=== PATIENT | female | born 1945 | race Caucasian/White ===

== ENCOUNTER 2023-09-19 09:30 | Emergency (ER) | payer OTHER ==
--- NOTE | 2023-09-19 10:11 | RAD REPORT ---
EXAM DESCRIPTION: CT - Head Brain Wo Cont - 09/19/2023 10:02 am CLINICAL HISTORY: Dizziness;Syncope COMPARISON: No comparisons TECHNIQUE: All CT scans are performed using dose optimization technique as appropriate and may inclu de automated exposure control or mA/KV adjustment according to patient size. FINDINGS: No intracranial hemorrhage, hydrocephalus or extra-axial fluid collection.No areas of brai n edema or evidence of midline shift. Mild chronic small vessel ischemic changes. The paranasal sinuses and mastoids are clear. The calvarium is intact. IMPRESSION: No acute intracranial abnormality.
[2023-09-19 10:22] LABS: Absolute Lymphocytes (CBC) 0.7 K/uL (0.7-4.9); Absolute Monocytes 0.5 K/uL (0.1-1.3); Absolute Neutrophil 7.1 K/uL (1.8-8.0); Basophils % 0.5 % (0-1.3); Eosinophils % 0.3 % (0-4.4); Hematocrit 37.4 % (36.0-45.0); Hemoglobin 12.6 g/dL (12.0-15.0); Lymphocytes % 7.8 % (15.3-44.8); MCH 31.7 pg (27.0-35.0); MCHC 33.8 g/dL (32.0-36.0); MCV 93.7 fL (80-100); MPV 8.8 fL (7.6-11.3); Monocytes % 6.1 % (3.3-12.3); Neutrophils % 85.3 % (41.7-73.7); Nucleated Red Blood Cells % 0.1 % (0-0); Platelets 162 thou/uL (152-406); RBC Red Blood Cell Count 3.99 M/uL (3.86-4.86)
[2023-09-19 10:31] LABS: PT Prothrombin Time 11.3 SECONDS (9.5-12.5); PTT, Activated Partial Thromb 28.6 SECONDS (24.3-36.9); Protime INR 1.03
--- NOTE | 2023-09-19 10:34 | RAD REPORT ---
EXAM DESCRIPTION: RAD - Chest Single View - 09/19/2023 10:07 am CLINICAL HISTORY: CHEST PAIN COMPARISON: CHEST PA AND LAT 2 VIEW dated 05/29/2012; CHEST PA AND LAT 2 VIEW dated 09/24/2009; CHEST PA AND LAT 2 VIEW dated 06/30/2009; CHEST PA AND LAT 2 VIEW dated 07/03/2000 FINDINGS: Lines: None. Lungs: No evidence of edema or pneumonia. Pleural: No significant pleural effusions or pneumothorax. Cardiac: The heart size is within normal limits. Mediastinum: Within normal limits. Bones: No acute fractures. Other: None IMPRESSION: No acute cardiopulmonary disease.
[2023-09-19] MEDS ORDERED: NA CHLORIDE 0.9% 1,000 ML ONE (10:43)
[2023-09-19 10:45] LABS: Sqamous Epithelial None Seen /HPF (None Seen); Urine Bacteria >50 /HPF (<20); Urine Culture Reflex Order REFLEXED; Urine Microscopic Reflex YN ORDER UMIC; Urine Mucus 1+ /HPF (None Seen); Urine RBC 21-50 /HPF (None Seen); Urine WBC >50 /HPF (<5)
[2023-09-19 10:46] LABS: Specific Gravity 1.013 (1.005-1.030); Urine Bilirubin NEGATIVE (Negative); Urine Blood Trace (Negative); Urine Clarity Extremely Turbid (Clear); Urine Color Light-Orange (Yellow); Urine Glucose NEGATIVE (Negative); Urine Ketones NEGATIVE (Negative); Urine Nitrite 2+ (Negative); Urine Protein 2+ (Negative); Urine Urobilinogen Normal (Normal); Urine pH 8.5 (5.0-7.0)
[2023-09-19 10:48] LABS: Albumin 3.8 g/dL (3.4-5.0); Anion Gap 9.4 mEq/L (5.0-15.0); Bilirubin Direct 0.2 mg/dL (0-0.2); Bilirubin Indirect, Calculated 0.4 mg/dL (0.2-0.8); Bilirubin Total 0.6 mg/dL (0.2-1.0); Globulin 3.7 g/dL (2.3-3.5); Potassium 3.4 mEq/L (3.5-5.1); Protein, Total 7.5 g/dL (6.4-8.2); Thyroid Stimulating Hormone 1.28 uIU/mL (0.358-3.740); Troponin High Sensitivity 4.9 pg/mL (<58.9)
[2023-09-19] MEDS ORDERED: CEFTRIAXONE 1000 MG/VIAL ONE (10:57)
--- NOTE | 2023-09-19 11:31 | EDPHYS ---
Physician Documentation [facility] Name: Alexia Chauhan Age: 78 yrs Sex: Female : 1945 Arrival Date: 09/19/2023 Time: 09:30 Bed 3 Private MD: Js Solares ED Physician Sheng Aguilar HPI: 09/18 09:53 This 78 yrs old Female presents to ER via Ambulatory with complaints of Weakness. sb4 09:53 Daughter states that patient has been following occasionally over the past couple sb4 months but yesterday she fell 3 times and this morning she fell and apparently "completely passed out "patient does endorse dizziness when standing but has no other complaints at this time. She reports no injuries, no head trauma. She was recently started on Plavix 3 days ago for carotid artery stenosis but otherwise no changes in medications or diagnoses. Historical: - Allergies: 09:49 No Known Allergies; ll1 - PMHx: 09:49 Dementia; carotid artery stenosis; ll1 - PSHx: 09:49 None; ll1 - Immunization history:: Adult Immunizations up to date. - Infectious Disease History:: Denies. - Social history:: Smoking status: Patient denies any tobacco usage or history of. ROS: 09:53 Constitutional: Negative for fever, chills, and weight loss, sb4 09:53 Neuro: Positive for dizziness, weakness, 09:53 All other systems are negative, Exam: 09:53 Constitutional: This is a well developed, well nourished patient who is awake, alert, sb4 and in no acute distress. Head/Face: Normocephalic, atraumatic. Eyes: Extra-ocular motions intact. Periorbital areas with no swelling, redness, or edema. ENT: Mucous membranes moist. Cardiovascular: Regular rate and rhythm with a normal S1 and S2. Respiratory: Lungs have equal breath sounds bilaterally, clear to auscultation and percussion. No rales, rhonchi or wheezes noted. No increased work of breathing, no retractions or nasal flaring. Abdomen/GI: Soft, non-tender, no distension. Skin: Warm, dry with normal turgor. Normal color with no rashes, no lesions, and no evidence of cellulitis. MS/ Extremity: Pulses equal, no cyanosis. Neurovascular intact. Full, normal range of motion. Neuro: Awake and alert, GCS 15, oriented to person, place, time, and situation. Motor strength 5/5 in all extremities. Sensory grossly intact. Vital Signs: 09:50 Resp 16; Temp 97.2; Weight 49.9 kg; Height 5 ft. 1 in. ; ll1 10:10 BP 124 / 57 LA Supine (auto/reg); Pulse 69; Resp 15; Pulse Ox 100% ; ko1 10:11 BP 104 / 61 LA Sitting (auto/reg); Pulse 69; Resp 16; Pulse Ox 100% ; ko1 10:12 BP 89 / 56 LA Standing (auto/reg); Pulse 71; Resp 16; Pulse Ox 100% ; ko1 10:45 BP 143 / 60; Pulse 64; Resp 15; Pulse Ox 100% ; ko1 11:15 BP 148 / 64; Pulse 65; Resp 14; Pulse Ox 100% ; ko1 11:30 BP 138 / 60; Pulse 68; Resp 14; Pulse Ox 99% ; ko1 09:50 Body Mass Index 20.78 (49.90 kg, 154.94 cm) ll1 MDM: 09:43 Patient medically screened. sb4 09:53 Data reviewed:. sb4 09/18 09:52 Order name: Basic Metabolic Panel; Complete Time: 10:49 sb4 09/18 09:52 Order name: CBC with Diff; Complete Time: 11:45 sb4 09/18 09:52 Order name: Hepatic Function; Complete Time: 10:49 sb4 09/18 09:52 Order name: Magnesium; Complete Time: 10:49 sb4 09/18 09:52 Order name: Protime (+inr); Complete Time: 10:35 sb4 09/18 09:52 Order name: Ptt, Activated; Complete Time: 10:35 sb4 09/18 09:52 Order name: Troponin High Sensitivity; Complete Time: 10:49 sb4 09/18 09:52 Order name: Urinalysis w/ reflexes; Complete Time: 10:46 sb4 09/18 09:52 Order name: TSH; Complete Time: 10:49 sb4 09/18 10:33 Order name: CBC Smear Scan; Complete Time: 11:45 EDMS 09/18 10:49 Order name: Urine Culture EDMS 09/18 09:52 Order name: CT Head Brain wo Cont; Complete Time: 10:12 sb4 09/18 09:52 Order name: Chest Single View XRAY; Complete Time: 10:35 sb4 09/18 09:52 Order name: Cardiac monitoring; Complete Time: 09:56 sb4 09/18 09:52 Order name: EKG - Nurse/Tech; Complete Time: 10:14 sb4 09/18 09:52 Order name: IV Saline Lock; Complete Time: 10:31 sb4 09/18 09:52 Order name: Labs collected and sent; Complete Time: 10:31 sb4 09/18 09:52 Order name: NPO; Complete Time: 09:56 sb4 09/18 09:52 Order name: O2 Per Protocol; Complete Time: 09:56 sb4 09/18 09:52 Order name: O2 Sat Monitoring; Complete Time: 09:56 sb4 09/18 09:52 Order name: Orthostatics; Complete Time: 10:31 sb4 09/18 10:58 Order name: Misc. Order: ambulate; Complete Time: 11:47 sb4 EC:12 Rate is 70 beats/min. Rhythm is regular, Normal Sinus Rhythm. IN interval is normal at sb4 186 msec. QRS interval is normal at 84 msec. QT interval is normal. No Q waves. Clinical impression: No evidence of ischemia. Interpreted by me. Reviewed by me. Administered Medications: 10:47 Drug: NS 0.9% IV 1000 ml IV at 1 bolus Per protocol; 1000 mL bolus Route: IV; Rate: 1 ko1 bolus; Site: right antecubital; 10:58 Drug: Rocephin IV 1 grams IV at calculated rate once; Given slow IV push per pharmacy ko1 instructions Route: IV; Rate: calculated rate; Site: right antecubital; Disposition: 10:00 I was immediately available on-site in the Emergency Department for consultation in the ms3 care of the patient. Disposition Summary: 09/19/23 11:30 Discharge Ordered Notes: Location: Home sb4 Problem: new sb4 Symptoms: have improved sb4 Condition: Stable sb4 Diagnosis - UTI/ Urinary tract infection, site not specified sb4 - Orthostatic hypotension sb4 Followup: sb4 - With: Js Solares MD - When: As needed - Reason: Recheck today's complaints, Re-evaluation by your physician Discharge Instructions: - Discharge Summary Sheet sb4 - Orthostatic Hypotension sb4 - Urinary Tract Infection, Adult, [id number] sb4 Forms: - Thank You Letter sb4 - Antibiotic Education sb4 - Patient Portal Instructions sb4 - Leadership Thank You Letter sb4 Prescriptions: - cefpodoxime 100 mg Oral Tablet - take 1 tablet ORAL route every 12 hours for 10 days take with food; 20 tablet; sb4 Refills: 0, Product Selection Permitted Signatures: Dispatcher [employer] EDMS Ashley Bolton, RN RN ll1 Sheng Aguilar, DO ms3 Roxana Colon, RN RN ko1 Shayy Watts, PAMalathiC PADiogo sb4 Corrections: (The following items were deleted from the chart) 09:53 09:52 BASIC METABOLIC PANEL+C.LAB.BRZ ordered. EDMS EDMS 09:53 09:52 CBC+H.LAB.BRZ ordered. EDMS EDMS 09:53 09:52 HEPATIC FUNCTION+C.LAB.BRZ ordered. EDMS EDMS 09:53 09:52 MAGNESIUM+C.LAB.BRZ ordered. EDMS EDMS 09:53 09:52 PROTIME (+INR)+COAG.LAB.BRZ ordered. EDMS EDMS 09:53 09:52 PTT, ACTIVATED+COAG.LAB.BRZ ordered. EDMS EDMS 09:53 09:52 Troponin High Sensitivity+C.LAB.BRZ ordered. EDMS EDMS 09:53 09:52 Urinalysis+U.LAB.BRZ ordered. EDMS EDMS 09:53 09:53 Chest Single View+RAD.RAD.BRZ ordered. EDMS EDMS 09:53 09:53 THYROID STIMULAT HORMONE+C.LAB.BRZ ordered. EDMS EDMS
--- NOTE | 2023-09-19 11:31 | ER ---
Nurse's Notes [facility] Name: Alexia Chauhan Age: 78 yrs Sex: Female : 1945 Arrival Date: 09/19/2023 Time: 09:30 Bed 3 Private MD: Js Solares Diagnosis: UTI/ Urinary tract infection, site not specified;Orthostatic hypotension Presentation: 09/18 09:50 Chief complaint: Patient states: Multiple falls the past few months. Fell 3 times this ll1 morning. Legs were very weak and wobbly when her daughter was helping her up the last time she passed out. Coronavirus screen: Client denies travel out of the [place] in the last 14 days. At this time, the client does not indicate any symptoms associated with coronavirus-19. Ebola Screen: Patient denies travel to an Ebola-affected area in the 21 days before illness onset. No acute neurological deficit is noted. Initial Sepsis Screen: Does the patient meet any 2 criteria? No. Patient's initial sepsis screen is negative. Does the patient have a suspected source of infection? No. Patient's initial sepsis screen is negative. Risk Assessment: Do you want to hurt yourself or someone else? Patient reports no desire to harm self or others. Onset of symptoms was September 19, 2023. 09:50 Method Of Arrival: Ambulatory ll1 09:50 Acuity: VANESSA 2 ll1 Triage Assessment: 09:52 General: Appears in no apparent distress. Behavior is calm, cooperative, appropriate ll1 for age. Neuro: Reports a syncopal episode weakness. 10:37 Pain: Denies pain. EENT: No deficits noted. Neuro: Reports. Cardiovascular: No deficits ko1 noted. Respiratory: No deficits noted. GI: No deficits noted. : Reports burning with urination. Derm: No deficits noted. Musculoskeletal: No deficits noted. Historical: - Allergies: 09:49 No Known Allergies; ll1 - PMHx: 09:49 Dementia; carotid artery stenosis; ll1 - PSHx: 09:49 None; ll1 - Immunization history:: Adult Immunizations up to date. - Infectious Disease History:: Denies. - Social history:: Smoking status: Patient denies any tobacco usage or history of. Screenin:00 [facility] ED Fall Risk Assessment (Adult) History of falling in the last 3 months, ko1 including since admission Yes- fall prone (multiple falls) (3 pts) Confusion or Disorientation Yes (5 pts) Intoxicated or Sedated No (0 pts) Impaired Gait No (0 pts) Mobility Assist Device Used No (0 pt) Altered Elimination No (0 pt) Score/Fall Risk Level 3 or more points = High Risk Oriented to surroundings, Maintained a safe environment, Educated pt \T\ family on fall prevention, incl call for assistance when getting out of bed, Assessed \T\ reinforced patient's understanding of fall precautions, Provided non-skid footwear, Hourly rounding (assess needs \T\ fall precautionary measures) done, Used ambulatory aids as needed (educated on \T\ assisted with), Used gait belt as appropriate Implemented a Fall Risk Plan of Care, Apply high fall risk patient identification: yellow non skid footwear/ fall signage, Remained w/in arm's length of patient and in sight while toileting, Offered frequent toileting (1:1 observation), Remained with patient while ambulating, Utilized family, sitter, or virtual front desk auxiliary as indicated. Abuse screen: Denies threats or abuse. Denies injuries from another. Nutritional screening: No deficits noted. Tuberculosis screening: No symptoms or risk factors identified. Assessment: 10:00 General: Appears in no apparent distress. Behavior is calm, cooperative, appropriate ko1 for age. Pain: Denies pain. Neuro: Reports dizziness, a syncopal episode weakness. Cardiovascular: No deficits noted. Respiratory: No deficits noted. GI: No deficits noted. : No deficits noted. EENT: No deficits noted. Derm: No deficits noted. Musculoskeletal: No deficits noted. Vital Signs: 09:50 Resp 16; Temp 97.2; Weight 49.9 kg; Height 5 ft. 1 in. ; ll1 10:10 BP 124 / 57 LA Supine (auto/reg); Pulse 69; Resp 15; Pulse Ox 100% ; ko1 10:11 BP 104 / 61 LA Sitting (auto/reg); Pulse 69; Resp 16; Pulse Ox 100% ; ko1 10:12 BP 89 / 56 LA Standing (auto/reg); Pulse 71; Resp 16; Pulse Ox 100% ; ko1 10:45 BP 143 / 60; Pulse 64; Resp 15; Pulse Ox 100% ; ko1 11:15 BP 148 / 64; Pulse 65; Resp 14; Pulse Ox 100% ; ko1 11:30 BP 138 / 60; Pulse 68; Resp 14; Pulse Ox 99% ; ko1 09:50 Body Mass Index 20.78 (49.90 kg, 154.94 cm) ll1 ED Course: 09:32 Patient arrived in ED. rg4 09:32 Shayy Watts [facility]C [facility] sb4 09:32 Sheng Aguilar DO is Attending Physician. sb4 09:34 Js Solares MD is Private Physician. rg4 09:43 Arm band placed on Patient placed in an exam room, on a stretcher. ll1 09:52 Triage completed. ll1 09:56 Roxana Colon, RN is Primary Nurse. ko1 09:[address] db 10:00 Patient has correct armband on for positive identification. Placed in gown. Bed in low ko1 position. Call light in reach. Side rails up X2. Client placed on continuous cardiac and pulse oximetry monitoring. NIBP monitoring applied. sleeping car porter on. Door closed. Noise minimized. Lights dimmed. Warm blanket given. 10:00 Initial lab(s) drawn, by me, sent to lab. Urine collected: clean catch specimen, ko1 cloudy, pippa colored. Inserted saline lock: 22 gauge in right antecubital area, using aseptic technique. Blood collected. 10:02 CT Head Brain wo Cont In Process Unspecified. EDMS 10:09 Chest Single View XRAY In Process Unspecified. EDMS 10:14 EKG done, by ED staff, reviewed by Shayy Watts PA-C. db 10:31 Basic Metabolic Panel Sent. ko1 10:31 Hepatic Function Sent. ko1 10:31 Magnesium Sent. ko1 10:31 TSH Sent. ko1 10:31 Troponin High Sensitivity Sent. ko1 10:31 Urinalysis w/ reflexes Sent. ko1 10:48 CBC Smear Scan Sent. ko1 10:54 Urine Culture Sent. ko1 11:30 Js Solares MD is Referral Physician. sb4 11:37 Provided Education on: na. ko1 11:37 No provider procedures requiring assistance completed. IV discontinued, intact, ko1 bleeding controlled, No redness/swelling at site. Pressure dressing applied. Administered Medications: 10:47 Drug: NS 0.9% IV 1000 ml IV at 1 bolus Per protocol; 1000 mL bolus Route: IV; Rate: 1 ko1 bolus; Site: right antecubital; 10:58 Drug: Rocephin IV 1 grams IV at calculated rate once; Given slow IV push per pharmacy ko1 instructions Route: IV; Rate: calculated rate; Site: right antecubital; Medication: 11:46 VIS not applicable for this client. ko1 Outcome: 11:30 Discharge ordered by MD. randall 11:46 Discharged to home ambulatory, with family, ko1 11:46 Condition: stable 11:46 Discharge instructions given to patient, family, Instructed on discharge instructions, follow up and referral plans. medication usage, Demonstrated understanding of instructions, follow-up care, medications, Prescriptions given X 1, 11:59 Patient left the ED. ll1 Signatures: Dispatcher [employer] EDRadha Landry 4 Ashley Bolton RN RN ll1 Roxana Colon RN RN ko1 Alexia Gonzalez RN Shayy Clark, PA-C PA-C sb4
[2023-09-19 11:44] LABS: Blood Morphology Comment NOT SEEN (NOT SEEN); Platelet Estimate ADEQ; White Blood Cell Scan OK (OK)
--- NOTE | 2023-09-19 13:36 | EKG ---
Test Date: 2023-09-19 Test Time: 09:58:59 Forklift Truck Operator: JOSE M MEASUREMENT RESULTS: Intervals: Rate: 70 OR: 186 QRSD: 84 QT: 446 QTc: 481 [place]: P: 81 OR: 186 QRS: 85 T: 153 INTERPRETIVE STATEMENTS: Normal sinus rhythm ST & T wave abnormality, consider inferior ischemia Abnormal ECG Compared to ECG 07/03/2000 05:45:00 Possible ischemia now present ST (T wave) deviation still present Electronically Signed On 09-19-23 13:35:46 CDT by Messi Resendez
[2023-09-19 15:59] VITALS: BP 138/60; TEMP 97.2; O2SAT 99
== END 2023-09-19 11:59 | disposition home or self-care (01) ==
LOC: ER 09:30
DX: N39.0 Urinary tract infection, site not specified (principal); I95.1 Orthostatic hypotension; F03.90 Unspecified dementia, unspecified severity, without behavioral disturbance, psychotic disturbance, mood disturbance, and anxiety
CPT/HCPCS: 93005; 87088; 85025; 81001; 87086; 80048; 36415; 83735; 85610; 80076; 85730; 84443; 84484; 70450; 71045; 96374; 99285; J7030; J0696; 87077; 87186

== ENCOUNTER 2023-09-27 10:09 | Emergency (ER) | payer OTHER ==
[2023-09-27] MEDS ORDERED: HYDROCODONE/APAP 5/325 MG TAB ONE (11:38)
--- NOTE | 2023-09-27 11:51 | RAD REPORT ---
EXAM DESCRIPTION: Alvin Cao (2 Views)09/27/2023 11:40 am CLINICAL HISTORY: Chest pain COMPARISON: September 19, 2023 FINDINGS: The lungs appear clear of acute infiltrate. The heart is normal size IMPRESSION: No acute abnormalities displayed
--- NOTE | 2023-09-27 12:25 | RAD REPORT ---
EXAM DESCRIPTION: RAD - Hip Right 2 View - 09/27/2023 11:40 am CLINICAL HISTORY: Right hip pain FINDINGS: No fracture or dislocation is seen. The bones are osteoporotic. Mild osteoarthritis involves the right hip consisting joint space narro wing and subchondral sclerosis Radiopaque densities overlie the right pelvis presumably tablets within bowel
[2023-09-27 14:08] LABS: Absolute Eosinophils 0.1 K/uL (0-0.5); Absolute Lymphocytes (CBC) 1.4 K/uL (0.7-4.9); Absolute Monocytes 0.4 K/uL (0.1-1.3); Absolute Neutrophil 2.8 K/uL (1.8-8.0); Basophils % 0.9 % (0-1.3); Eosinophils % 1.8 % (0-4.4); Hematocrit 38.5 % (36.0-45.0); Hemoglobin 12.8 g/dL (12.0-15.0); Lymphocytes % 29.4 % (15.3-44.8); MCH 31.4 pg (27.0-35.0); MCHC 33.2 g/dL (32.0-36.0); MCV 94.5 fL (80-100); MPV 9.3 fL (7.6-11.3); Monocytes % 8.4 % (3.3-12.3); Neutrophils % 59.5 % (41.7-73.7); Platelets 178 thou/uL (152-406); RBC Red Blood Cell Count 4.07 M/uL (3.86-4.86)
[2023-09-27 14:11] LABS: Anion Gap 6.7 mEq/L (5.0-15.0); Potassium 3.7 mEq/L (3.5-5.1)
[2023-09-27] MEDS ORDERED: KETOROLAC 30 MG/ML INJ ONE (14:47)
--- NOTE | 2023-09-27 15:10 | RAD REPORT ---
EXAM DESCRIPTION: CT - CTHCSPWOC - 09/27/2023 2:47 pm CLINICAL HISTORY: Trauma, head and neck injury. TRAUMA COMPARISON: <Comparisons> TECHNIQUE: Axial 5 mm thick images of the head were obtained. Axial 2 mm thick images of the cervical spine were obtained with sagittal and coronal reconstruction images generated and reviewed. All CT scans are performed using dose optimization technique as appropriate and may include automated exposure control or mA/KV adjustment according to patient size. FINDINGS: CT HEAD WITHOUT CONTRAST: No acute hemorrhage, hydrocephalus or extra-axial collection is identified.Mild generalized brain atr ophy is present with mild periventricular and deep white matter chronic microvascular ischemic change s.No areas of brain edema or midline shift. The paranasal sinuses and mastoids are clear.The calvarium is intact. CT CERVICAL SPINE WITHOUT CONTRAST: No fracture or subluxation.Mild lower cervical spondylosis.No prevertebral soft tissues swelling is i dentified. IMPRESSION: No acute intracranial or cervical spine findings.
--- NOTE | 2023-09-27 15:15 | RAD REPORT ---
EXAM DESCRIPTION: CT - Chest For Pe Angio - 09/27/2023 2:47 pm CLINICAL HISTORY: Chest pain. PE COMPARISON: <Comparisons> TECHNIQUE: CT angiogram of the pulmonary arteries was performed with MIP. All CT scans are performed using dose optimization technique as appropriate and may include automated exposure control or mA/KV adjustment according to patient size. FINDINGS: No evidence of pulmonary thromboembolism. No acute aortic finding demonstrated. The lungs are clear. No significant pericardial or pleural fluid. No concerning bony finding. IMPRESSION: No evidence of pulmonary thromboembolism. No acute lung findings.
--- NOTE | 2023-09-27 15:49 | EDPHYS ---
Physician Documentation [facility] Name: Alexia Chauhan Age: 78 yrs Sex: Female : 1945 Arrival Date: 09/27/2023 Time: 10:09 Bed 11 Private MD: ED Physician Trinidad Rivas HPI: 09/26 14:25 This 78 yrs old Female presents to ER via Ambulatory with complaints of Pain. ci 14:25 Patient is a 78-year-old female with PMH carotid artery stenosis, dementia who presents ci to the ED with left chest wall pain that began 5 days ago s/p mechanical fall. Patient reports she lost her balance and fell. No head strike, no LOC, not on blood thinners. Patient states it hurts to take a deep breath in. Patient also complaining of right hip pain.. Historical: - Allergies: 10:25 No Known Allergies; ll1 - PMHx: 10:15 carotid artery stenosis; Dementia; ll1 - PSHx: 10:25 hip FX; ll1 - Immunization history:: Adult Immunizations up to date. - Social history:: Smoking status: Patient denies any tobacco usage or history of. - History obtained from: daughter. ROS: 14:25 Cardiovascular: Positive for chest pain, ci 14:25 MS/extremity: Positive for pain, Exam: 14:25 Constitutional: This is a well developed, well nourished patient who is awake, alert, ci and in no acute distress. Head/Face: Normocephalic, atraumatic. Eyes: Pupils equal round and reactive to light, extra-ocular motions intact. Lids and lashes normal. Conjunctiva and sclera are non-icteric and not injected. Cornea within normal limits. Periorbital areas with no swelling, redness, or edema. ENT: Nares patent. No nasal discharge, no septal abnormalities noted. Tympanic membranes are normal and external auditory canals are clear. Oropharynx with no redness, swelling, or masses, exudates, or evidence of obstruction, uvula midline. Mucous membranes moist. Neck: Trachea midline, no thyromegaly or masses palpated, and no cervical lymphadenopathy. Supple, full range of motion without nuchal rigidity, or vertebral point tenderness. No Meningismus. Chest/axilla: Normal chest wall appearance and motion. + tenderness to left chest wall, no deformity. No lesions are appreciated. Cardiovascular: Regular rate and rhythm with a normal S1 and S2. No gallops, murmurs, or rubs. Normal PMI, no JVD. No pulse deficits. Respiratory: Lungs have equal breath sounds bilaterally, clear to auscultation and percussion. No rales, rhonchi or wheezes noted. No increased work of breathing, no retractions or nasal flaring. Abdomen/GI: Soft, non-tender, with normal bowel sounds. No distension or tympany. No guarding or rebound. No evidence of tenderness throughout. Back: No spinal tenderness. No costovertebral tenderness. Full range of motion. Skin: Warm, dry with normal turgor. Normal color with no rashes, no lesions, and no evidence of cellulitis. MS/ Extremity: Pulses equal, no cyanosis. Neurovascular intact. Full, normal range of motion. Right hip tenderness to palpation, no step-offs or deformity. Neuro: Awake and alert, GCS 15, oriented to person, place, time, and situation. Cranial nerves II-XII grossly intact. Motor strength 5/5 in all extremities. Sensory grossly intact. Cerebellar exam normal. Normal gait. Psych: Awake, alert, with orientation to person, place and time. Behavior, mood, and affect are within normal limits. Vital Signs: 10:25 BP 124 / 73; Pulse 80; Resp 17; Temp 98.9; Pulse Ox 97% ; Weight 49.9 kg; Height 5 ft. ll1 1 in. ; Pain 9/10; 11:50 BP 138 / 86; Pulse 71; Resp 15; Pulse Ox 100% ; Pain 9/10; jl7 14:55 BP 147 / 72; Pulse 65; Resp 16; Pulse Ox 98% on R/A; ss 16:10 BP 148 / 68; Pulse 60; Resp 16; Pulse Ox 100% on R/A; nj1 10:25 Body Mass Index 20.78 (49.90 kg, 154.94 cm) ll1 10:25 Pain Scale: Adult ll1 11:50 Pain Scale: Adult jl7 MDM: 10:21 Patient medically screened. ci 14:25 Differential Diagnosis Rib contusion, sternal fracture, PE, pneumonia, ACS, hip ci dislocation/fracture. Data reviewed: vital signs, nurses notes. 09/26 11:15 Order name: Basic Metabolic Panel; Complete Time: 14:24 ci 04/ 15:27 Interpretation: Abnormal: NA 132. ci 04/ 11:15 Order name: CBC with Diff; Complete Time: 14:24 ci 04 11:15 Order name: D-Dimer; Complete Time: 14:24 ci 04/ 15:26 Interpretation: Abnormal: D-DIMER 1457. ci 04 11:15 Order name: Troponin HS; Complete Time: 14:24 ci 09/26 11:15 Order name: Chest Pa And Lat (2 Views) XRAY; Complete Time: 12:33 ci 04 11:15 Order name: Hip Right 2 View XRAY; Complete Time: 12:33 ci 04 14:25 Order name: CT Chest For PE Angio; Complete Time: 15:26 ci 04 14:32 Order name: CT Head C Spine; Complete Time: 15:26 ci 09/26 15:26 Interpretation: No acute disease. ci 09/26 11:15 Order name: EKG; Complete Time: 11:15 ci 09/26 11:15 Order name: Cardiac monitoring; Complete Time: 14:44 ci 09/26 11:15 Order name: EKG - Nurse/Tech; Complete Time: 12:03 ci 09/26 11:15 Order name: IV Saline Lock; Complete Time: 11:50 ci / 11:15 Order name: Labs collected and sent; Complete Time: 11:50 ci 09/26 11:15 Order name: O2 Per Protocol; Complete Time: 11:56 ci 09/26 11:15 Order name: O2 Sat Monitoring; Complete Time: 11:56 ci 09/26 12:05 Order name: Labs - recollect needed: recollect green blue and lavender top; Complete bd Time: 13:06 Administered Medications: 11:50 Drug: HYDROcodone-acetaminophen PO 5 mg-325 mg 1 tabs PO once Route: PO; jl7 14:43 Follow up: Response: No adverse reaction; No change in condition; Pain is unchanged, ss physician notified 14:54 Drug: Ketorolac IVP 15 mg IVP once Route: IVP; Site: right wrist; ss 16:10 Follow up: Response: No adverse reaction; Pain is decreased nj1 15:46 Not Given (Patient Refused): ns 0.9% 500 ml IV at bolus once ci Disposition Summary: 09/27/23 15:49 Discharge Ordered Notes: Location: Home ci Condition: Stable ci Diagnosis - Contusion of unspecified front wall of thorax ci - Osteoarthritis of hip, unspecified ci - Fall on same level, unspecified ci - Sprain of ribs ci Followup: ci - With: Private Physician - When: 2 - 3 days - Reason: Recheck today's complaints, Re-evaluation by your physician Discharge Instructions: - Discharge Summary Sheet ci - Osteoarthritis ci - Chest Contusion, Adult, [id number] ci - Fall Prevention in the Home, Adult, [id number] ci Forms: - Medication Reconciliation Form ci - Thank You Letter ci - Antibiotic Education ci - Prescription Opioid Use ci - Patient Portal Instructions ci - Leadership Thank You Letter ci Prescriptions: - lidocaine 5 % adhesive patch, medicated - apply 1 patch TOPICAL route daily leave on most painful area for up to 12 hrs; ci 20 patch; Refills: 0, Product Selection Permitted - Anaprox DS 550 mg Oral Tablet - take 1 tablet ORAL route every 12 hours As needed; 20 tablet; Refills: 0, ci Product Selection Permitted - Cyclobenzaprine 5 mg Oral Tablet - take 1 tablet ORAL route 3 times per day As needed; 15 tablet; Refills: 0, ci Product Selection Permitted Signatures: Dispatcher [employer] EDMS Jo Cruz Shelby, RN RN ss Michelle Rivera RN RN jl7 Ashley Bolton RN RN ll1 Trinidad Rivas Norma RN nj1 Corrections: (The following items were deleted from the chart) 11:15 11:15 BASIC METABOLIC PANEL+C.LAB.BRZ ordered. EDMS EDMS 11:15 11:15 CBC+H.LAB.BRZ ordered. EDMS EDMS 11:15 11:15 D-DIMER+COAG.LAB.BRZ ordered. EDMS EDMS 11:15 11:15 Troponin High Sensitivity+C.LAB.BRZ ordered. EDMS EDMS 14:32 14:32 Head C Spine MPR Wo Con+CT.RAD.BRZ ordered. EDMS EDMS
--- NOTE | 2023-09-27 15:49 | ER ---
Nurse's Notes [facility] Name: Alexia Chauhan Age: 78 yrs Sex: Female : 1945 Arrival Date: 09/27/2023 Time: 10:09 Bed 11 Private MD: Diagnosis: Contusion of unspecified front wall of thorax;Osteoarthritis of hip, unspecified;Fall on same level, unspecified;Sprain of ribs Presentation: 09/26 10:25 Chief complaint: Patient states: L chest still hurts from her fall 5 days ago. R hip ll1 pain also. Coronavirus screen: Client denies travel out of the [place] in the last 14 days. At this time, the client does not indicate any symptoms associated with coronavirus-19. Ebola Screen: Patient denies travel to an Ebola-affected area in the 21 days before illness onset. Initial Sepsis Screen: Does the patient meet any 2 criteria? No. Patient's initial sepsis screen is negative. Does the patient have a suspected source of infection? No. Patient's initial sepsis screen is negative. Risk Assessment: Do you want to hurt yourself or someone else? Patient reports no desire to harm self or others. Onset of symptoms was September 22, 2023. 10:25 Method Of Arrival: Ambulatory ll1 10:25 Acuity: VANESSA 4 ll1 Historical: - Allergies: 10:25 No Known Allergies; ll1 - PMHx: 10:15 carotid artery stenosis; Dementia; ll1 - PSHx: 10:25 hip FX; ll1 - Immunization history:: Adult Immunizations up to date. - Social history:: Smoking status: Patient denies any tobacco usage or history of. - History obtained from: daughter. Screenin:50 [facility] ED Fall Risk Assessment (Adult) History of falling in the last 3 months, jl7 including since admission Yes- single mechanical fall (1 pt) Confusion or Disorientation No (0 pts) Intoxicated or Sedated No (0 pts) Impaired Gait No (0 pts) Mobility Assist Device Used No (0 pt) Altered Elimination No (0 pt) Score/Fall Risk Level 0 - 2 = Low Risk Oriented to surroundings, Maintained a safe environment. Abuse screen: Denies threats or abuse. Denies injuries from another. Nutritional screening: No deficits noted. Tuberculosis screening: No symptoms or risk factors identified. Assessment: 11:50 General: Appears in no apparent distress. uncomfortable, Behavior is calm, cooperative, jl7 appropriate for age. Pain: Complains of pain in anterior aspect of left upper chest Pain does not radiate. Pain currently is 9 out of 10 on a pain scale. Quality of pain is described as bruised Pain began 2-3 days ago. Is continuous. Neuro: Level of Consciousness is awake, alert, obeys commands, Oriented to person, place, time, situation. Cardiovascular: Patient's skin is warm and dry. Respiratory: Airway is patent Respiratory effort is even, unlabored, Respiratory pattern is regular, symmetrical. Derm: Skin is pink, warm \T\ dry. 12:50 Reassessment: Patient appears in no apparent distress at this time. No changes from ss previously documented assessment. 13:50 Reassessment: Patient and/or family updated on plan of care and expected duration. Pain ss level reassessed. Patient is alert, oriented x 3, equal unlabored respirations, skin warm/dry/pink. 14:55 Reassessment: Pt back from CT. NAD at this time. Awaiting results. Toradol given as ss ordered. 16:10 Reassessment: Patient appears in no apparent distress at this time. Patient is alert, nj1 oriented x 3, equal unlabored respirations, skin warm/dry/pink. Patient states feeling better. Vital Signs: 10:25 BP 124 / 73; Pulse 80; Resp 17; Temp 98.9; Pulse Ox 97% ; Weight 49.9 kg; Height 5 ft. ll1 1 in. ; Pain 9/10; 11:50 BP 138 / 86; Pulse 71; Resp 15; Pulse Ox 100% ; Pain 9/10; jl7 14:55 BP 147 / 72; Pulse 65; Resp 16; Pulse Ox 98% on R/A; ss 16:10 BP 148 / 68; Pulse 60; Resp 16; Pulse Ox 100% on R/A; nj1 10:25 Body Mass Index 20.78 (49.90 kg, 154.94 cm) ll1 10:25 Pain Scale: Adult ll1 11:50 Pain Scale: Adult jl7 ED Course: 10:14 Patient arrived in ED. mg5 10:15 Arm band placed on. ll1 10:20 Trinidad Rivas is Attending Physician. ci 10:26 Triage completed. ll1 11:34 Michelle Rivera, RN is Primary Nurse. jl7 11:41 Chest Pa And Lat (2 Views) XRAY In Process Unspecified. EDMS 11:41 Hip Right 2 View XRAY In Process Unspecified. EDMS 11:50 Patient has correct armband on for positive identification. Bed in low position. Call jl7 light in reach. Side rails up X 1. Provided Education on: use of call craft. Client placed on continuous cardiac and pulse oximetry monitoring. NIBP monitoring applied. Warm blanket given. 11:50 Basic Metabolic Panel Sent. em1 11:50 CBC with Diff Sent. em1 11:50 D-Dimer Sent. em1 11:50 Troponin HS Sent. em1 11:50 Initial lab(s) drawn, by dc, sent to lab. Inserted saline lock: 22 gauge in right em1 wrist, using aseptic technique. Blood collected. 12:03 EKG done, by ED staff, reviewed by Trinidad Rivas. em1 12:11 Primary Nurse role handed off by Michelle Rivera, SAEED jl7 13:06 Tasha Mason, RN is Primary Nurse. ss 14:49 CT Chest For PE Angio In Process Unspecified. EDMS 14:49 CT Head C Spine In Process Unspecified. EDMS 15:58 Primary Nurse role handed off by Tasha Mason, SAEED jl7 16:11 No provider procedures requiring assistance completed. IV discontinued, intact, nj1 bleeding controlled, Pressure dressing applied. Administered Medications: 11:50 Drug: HYDROcodone-acetaminophen PO 5 mg-325 mg 1 tabs PO once Route: PO; jl7 14:43 Follow up: Response: No adverse reaction; No change in condition; Pain is unchanged, physician notified 14:54 Drug: Ketorolac IVP 15 mg IVP once Route: IVP; Site: right wrist; ss 16:10 Follow up: Response: No adverse reaction; Pain is decreased nj1 15:46 Not Given (Patient Refused): ns 0.9% 500 ml IV at bolus once ci Medication: 16:11 VIS not applicable for this client. nj1 Outcome: 15:49 Discharge ordered by MD. ci 16:11 Discharged to home ambulatory, with family, nj1 16:11 Condition: stable 16:11 Discharge instructions given to patient, Instructed on discharge instructions, follow up and referral plans. medication usage, Demonstrated understanding of instructions, follow-up care, medications, Prescriptions given X 3, 16:11 Patient left the ED. nj1 Signatures: Dispatcher [employer] Lan Baldwin em1 Tasha Mason, SAEED RN ss Michelle Rivera RN RN jl7 Ashley Bolton RN RN ll1 Ludmila Rodriguez RN RN nj1 Lola Berry [facility] [place] Trinidad Rivas
[2023-09-27 16:37] VITALS: BP 148/68; TEMP 98.9; O2SAT 100
--- NOTE | 2023-09-28 12:36 | EKG ---
Test Date: 2023-09-27 Test Time: 12:00:38 Glass Blowing Lathe Operator: FERMIN MEASUREMENT RESULTS: Intervals: Rate: 67 CA: 182 QRSD: 74 QT: 396 QTc: 418 Clarence: P: 78 CA: 182 QRS: 61 T: 67 INTERPRETIVE STATEMENTS: Normal sinus rhythm Low voltage QRS Septal infarct, age undetermined Abnormal ECG Compared to ECG 09/19/2023 09:58:59 Low QRS voltage now present Myocardial infarct finding now present ST (T wave) deviation no longer present Possible ischemia no longer present Electronically Signed On 09-28-23 12:33:49 CDT by Messi Resendez
== END 2023-09-27 16:11 | disposition home or self-care (01) ==
LOC: ER 10:09
DX: S23.41XA Sprain of ribs, initial encounter (principal); S20.212A Contusion of left front wall of thorax, initial encounter; M16.11 Unilateral primary osteoarthritis, right hip; W18.30XA Fall on same level, unspecified, initial encounter; F03.90 Unspecified dementia, unspecified severity, without behavioral disturbance, psychotic disturbance, mood disturbance, and anxiety
CPT/HCPCS: 85025; 80048; 36415; 85379; 84484; 70450; 72125; 71275; 71046; 73502; Q9967; 93005